=== PATIENT | male | born 1960 | race Caucasian/White ===

== ENCOUNTER 2018-12-22 14:57 | Outpatient (CLI) | payer OTHER ==
[2018-12-22] MEDS ORDERED: None at this Time (15:47)
== END 2018-12-22 23:59 | disposition home or self-care (01) ==
LOC: STAR 14:57
PROVIDERS: ATTEND Surgery
DX: Z02.9 Encounter for administrative examinations, unspecified (principal)

== ENCOUNTER 2018-12-29 13:57 | Day surgery (SDC) | payer OTHER ==
[~2018-12-29] VITALS: Ht 182.9 cm; Wt 111.4 kg
[~2018-12-29 13:57] MED LIST: BUPIVACAINE/PF-EPI 0.5% 1:200K ONE; None at this Time
[2018-12-29 14:37] VITALS: BP 165/81
[2018-12-29] MEDS ORDERED: LACTATED RINGERS 1,000 ML IV SCH ×2 (14:58→19:30)
[2018-12-29] MEDS ORDERED: SCOPOLAMINE PATCH, 1.5MG PATCH.TD72 TD ONE (15:00)
[2018-12-29] MEDS ORDERED: GABAPENTIN 300 MG CAPSULE PO ONE (15:00)
[2018-12-29] MEDS ORDERED: ACETAMINOPHEN 500 MG TABLET PO ONE (15:00)
[2018-12-29] MEDS ORDERED: MIDAZOLAM 1 MG/ML, 2ML ONE (15:39)
[2018-12-29] MEDS ORDERED: FENTANYL PF 250 MCG/5ML ONE (15:39)
[2018-12-29] MEDS ORDERED: ONDANSETRON 2MG/ML, 2ML ONE (16:00)
[2018-12-29] MEDS ORDERED: NEOSTIGMINE 1 MG/ML, 10ML ONE (16:00)
[2018-12-29] MEDS ORDERED: CEFAZOLIN 1,000 MG ONE (16:00)
[2018-12-29] MEDS ORDERED: GLYCOPYRROLATE 0.2MG/1ML, 5ML ONE (16:00)
[2018-12-29] MEDS ORDERED: PROPOFOL 10 MG/ML, 20ML ONE (16:00)
[2018-12-29] MEDS ORDERED: DEXAMETHASONE 4 MG/ML, 1ML ONE (16:00)
[2018-12-29] MEDS ORDERED: ROCURONIUM 10 MG/ML,10ML ONE (16:00)
[2018-12-29] MEDS ORDERED: OXYcodone 5 MG/5 ML ORAL.SOL UDC PO PRN ×2 (17:00→19:30)
[2018-12-29] MEDS ORDERED: MEPERIDINE/PF 25MG/0.5ML IVPush PRN (17:00)
[2018-12-29] MEDS ORDERED: HYDROmorphone 2 MG/ML, 1ML IVPush PRN (17:00)
[2018-12-29] MEDS ORDERED: LORazepam 2 MG/ML, 1ML IVPush PRN (17:00)
[2018-12-29] MEDS ORDERED: hydrALAzine 20 MG/ML, 1ML IV PRN (17:00)
[2018-12-29] MEDS ORDERED: HALOPERIDOL 5 MG/ML IV PRN (17:00)
[2018-12-29] MEDS ORDERED: FENTANYL PF 100 MCG/2ML IV PRN (17:00)
[2018-12-29] MEDS ORDERED: PROMETHAZINE 25 MG/ML, 1ML IV PRN (17:00)
[2018-12-29] MEDS ORDERED: HYDROmorphone 1 MG/ML, 1ML ONE (17:52)
[2018-12-29] MEDS ORDERED: OXYcodone 5 MG/5 ML ORAL.SOL UDC ONE (17:52)
[2018-12-29] MEDS ORDERED: FENTANYL PF 100 MCG/2ML ONE (17:52)
[2018-12-29] MEDS ORDERED: MEPERIDINE/PF 25MG/ML,1ML ONE (18:02)
[2018-12-29] MEDS ORDERED: KETOROLAC 30 MG/1 ML ONE (18:22)
[2018-12-29 19:03] VITALS: BP 153/83
[2018-12-29] MEDS ORDERED: ONDANSETRON 2MG/ML, 2ML IVPush PRN (19:30)
[2018-12-29] MEDS ORDERED: HYDROmorphone 2 MG/ML, 1ML IV PRN (19:30)
[2018-12-29] MEDS ORDERED: DIPHENHYDRAMINE 50 MG/ML, 1ML IVPush PRN (19:30)
[2018-12-29] MEDS ORDERED: OXYC5TAB3 PO (20:08)
[2018-12-30] MEDS ORDERED: KETOROLAC 30 MG/1 ML IV PRN
== END 2018-12-29 21:43 | disposition home or self-care (01) ==
LOC: OR 13:57 → 4NOR 18:59 → OR 21:43
PROVIDERS: ATTEND Surgery
DX: K42.9 Umbilical hernia without obstruction or gangrene (principal); K42.0 Umbilical hernia with obstruction, without gangrene; Z87.891 Personal history of nicotine dependence; Z72.89 Other problems related to lifestyle
CPT/HCPCS: 49653; C1781; J0360; J0690; J1100; J1170; J2175; J2250; J2405; J2704; J2710; J3010; J3490; J7120; S2900; G0378